=== PATIENT | male | born 1995 | race African-American/Black ===

== ENCOUNTER 2019-01-09 17:35 | Emergency (ER) | payer MEDICAID, OTHER ==
[~2019-01-09] VITALS: Ht 185.4 cm; Wt 108.9 kg
[2019-01-09 17:50] VITALS: BP 121/68
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
[2019-01-09] MEDS ORDERED: Morphine Sulfate 4mg/ml Inj (IV USE ONLY) IVP ONE (18:15)
[2019-01-09] MEDS ORDERED: Ketorolac 30mg Inj IV ONE (18:15)
[2019-01-09] MEDS ORDERED: Tetanus/Diptheria/Pertussis IM ONE (18:15)
[2019-01-09] MEDS ORDERED: Bacitracin Oint 15gm Tube TOPIC ONE (18:30)
[2019-01-09 18:41] LABS: HEMATOCRIT 43.7 % (42.0-52.0); MEAN CORPUSCULAR VOLUME 88 FL (80-99); PLATELET COUNT 250 K/UL (150-450); RED BLOOD COUNT 4.97 M/UL (4.70-6.10); RED CELL DISTRIBUTION WIDTH 11.3 % (11.6-14.8)
[2019-01-09 18:45] LABS: WHITE BLOOD COUNT 22.6 K/UL (4.8-10.8)
[2019-01-09 18:48] LABS: ANION GAP 14 mmol/L (5-15); BLOOD UREA NITROGEN 11 mg/dL (7-18); CALCIUM 9.5 MG/DL (8.5-10.1); CARBON DIOXIDE 24 MMOL/L (21-32); CHLORIDE 105 MMOL/L (98-107); CREATININE 1.2 MG/DL (0.55-1.30); POTASSIUM 3.5 MMOL/L (3.5-5.1); SODIUM 143 MMOL/L (136-145)
[2019-01-09 18:58] LABS: ALANINE AMINOTRANSFERASE 15 U/L (12-78); ALBUMIN 4.2 G/DL (3.4-5.0); ALBUMIN/GLOBULIN RATIO 1.2 (1.0-2.7); ALKALINE PHOSPHATASE 71 U/L (46-116); ASPARTATE AMINO TRANSFERASE 20 U/L (15-37)
--- NOTE | 2019-01-09 19:00 | NUR ---
HAND-OFF: Report given to NANCY Massey.
--- NOTE | 2019-01-09 19:02 | NUR ---
ED Nurse Note: report received from NANCY Alcaraz. pt is in bed resting. no acute distress is noted .
[2019-01-09] MEDS ORDERED: NORCO 5-325 TA1 EACH ORAL (20:31)
[2019-01-09] MEDS ORDERED: IBUPROFEN600 MG ORAL (20:31)
[2019-01-09] MEDS ORDERED: BACITRACIN15 GM TOPIC (20:31)
[2019-01-09 20:38] VITALS: BP 135/84
--- NOTE | 2019-01-09 20:38 | NUR ---
ER DISCHARGE NOTE: Patient is cleared to be discharged per ERMD, pt is aox4, on room air, with stable vital signs. pt was given dc and prescription instructions, pt was able to verbalize understanding, pt id band and iv site removed without complications. pt is able to ambulate with steady gait. pt took all belongings.
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
--- NOTE | 2019-01-10 11:42 | Diagnostic Imaging Report ---
Indications: Reason For Exam: PAIN Technique: Two views of the left forearm Comparison: None Findings: No acute fractures. No dislocations. No radiopaque foreign body Impression: Negative
--- NOTE | 2019-01-10 11:44 | Diagnostic Imaging Report ---
Indications:Left elbow pain Technique: Three or 4 views of the left elbow Comparison: None Findings: Exam is limited as a true lateral view is not provided; effusion therefore not excludable. No definite acute fractures. No dislocations Impression: Limited. No definite acute abnormality
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
== END 2019-01-09 20:38 | disposition home or self-care (01) ==
LOC: EMR 18:07
DX: S70.311A Abrasion, right thigh, initial encounter (principal); S70.211A Abrasion, right hip, initial encounter; S40.812A Abrasion of left upper arm, initial encounter; S40.811A Abrasion of right upper arm, initial encounter; R10.2 Pelvic and perineal pain; M79.642 Pain in left hand; M79.641 Pain in right hand; T14.90XA Injury, unspecified, initial encounter; Z23 Encounter for immunization; V28.4XXA Motorcycle driver injured in noncollision transport accident in traffic accident, initial encounter; Y92.410 Unspecified street and highway as the place of occurrence of the external cause
CPT/HCPCS: 36415; 72170; 73080; 73090; 73130; 73552; 73562; 80053; 85007; 85025; 90471; 90715; 96374; 96375; 99284; J1885; J2270